=== PATIENT | female | born 1975 | race Caucasian/White ===

== ENCOUNTER 2016-09-21 23:45 | Inpatient (IN) | payer MEDICAID ==
[~2016-09-21] VITALS: Ht 152.4 cm; Wt 81.2 kg
[2016-09-22] MEDS ORDERED: LACTATED RINGER'S 1,000 ML IV ONE ×2 (01:00→07:30)
--- NOTE | 2016-09-22 01:54 | TRIAGE ---
OB Triage Datetime Report Generated by CPN: 09/22/2016 01:54 Datetime: 09/22/2016 01:04 Stage of : OB Triage Datetime: 09/22/2016 00:13 Stage of : Labor Maternal Assessment Level of Consciousness: Fully Conscious DTR's/Clonus: DTRs 2+; No Clonus Headache: Denies Breath Sounds, Left: Clear and Equal Breath Sounds, Right: Clear and Equal Nausea/Vomiting: Denies RUQ Epigastric Pain: Denies Temperature Route: Axillary Heart Rate FHR Baseline Rate: 140 Monitor Mode: External US FHR Baseline Changes: No Baseline Change Variability: Moderate 6-25 bpm Decelerations: None Category: Category I Pain Assessment Pain Scale: 6 Pain Presence: Intermittent Pain Type: Cramping; Dull; Sharp; Contraction Pain Location: Abdomen; Back Pain Goal: 2 Pain Relief Measures: Comfort Measures Vaginal Exam Dilatation (cms): 0.0 Effacement (%): 90 Station: -2 Exam By: TOM PAULINO Membrane Status: Intact Vaginal Bleeding: None Cervix, Consistency: Soft Cervix, Position: Midposition Presentation 'A': Cephalic Lie 'A': Unable to Assess Datetime: 09/22/2016 00:06 Time of Arrival: 09/22/2016 23:37 EGA: 37.4 Arrived By: Ambulatory Arrived From: Home Chief Complaint: C/O PAIN 5/10 WITH UTCS Q 4-5 MINUTES Movement: Present Contractions: Regular Time Contractions Began: 09/22/2016 21:00 Contractions: 4-5 Rupture of Membranes: Denies Vaginal Bleeding: None Vaginal Discharge: Denies Recent Sexual Intercouse: Denies Abdominal Trauma: Not Applicable Patient Complaints: Contractions; Cramping Time Provider Notified: 09/22/2016 01:00 Provider Notified: Jesus Initial Plan: VSS, MONITORING OF FHR AND UTCS, OB ASSESSMENT Datetime: 09/21/2016 23:58 Stage of : Labor Maternal Assessment Level of Consciousness: Fully Conscious DTR's/Clonus: DTRs 2+ Headache: Denies Blurred Vision: No Respiratory Effort: Unlabored Breath Sounds, Left: Clear and Equal Breath Sounds, Right: Clear and Equal Nausea/Vomiting: Denies RUQ Epigastric Pain: Denies Facial Edema: None Labor Evaluation Frequency: 4 Monitor Mode: External Duration (sec)2399: 65--70 Quality: Moderate Pattern: Normal: <= 5 Contractions in 10 Minutes Resting Tone [place]: Relaxed Heart Rate FHR Baseline Rate: 150 Monitor Mode: External US FHR Baseline Changes: No Baseline Change Variability: Minimal - Undetectable to <=5 bpm Decelerations: Early Category: Category II Pain Assessment Pain Scale: 5 Pain Presence: Intermittent Pain Type: Cramping; Contraction Pain Location: Abdomen Pain Goal: 2 Pain Relief Measures: Comfort Measures Membrane Status: Intact
[2016-09-22] MEDS ORDERED: METHYLERGONOVINE 0.2 MG INJ IM PRN ×2 (02:00→11:30)
[2016-09-22] MEDS ORDERED: OXYTOCIN 30 UNITS/LR 500 ML IV SCH (02:00)
[2016-09-22] MEDS ORDERED: CEFAZOLIN 2 GM/50 ML (PMX) 50 ML IV SCH (02:00)
[2016-09-22] MEDS ORDERED: MISOPROSTOL 200 MCG TAB PR PRN ×2 (02:00→11:30)
[2016-09-22] MEDS ORDERED: OXYTOCIN 30 UNITS/LR 500 ML IV PRN ×2 (02:00→11:30)
[2016-09-22] MEDS ORDERED: CARBOPROST 250 MCG INJ IM PRN ×2 (02:00→11:30)
[2016-09-22 02:25] VITALS: Ht 152.4 cm; Wt 81.2 kg
[2016-09-22 02:26] VITALS: BP 133/63; PULSE 67; RESP 18
[2016-09-22 02:51] LABS: ADD SCAN DIFF NO
[2016-09-22 02:54] LABS: BASOPHILS % 0.2 % (0.0-2.0); EOSINOPHILS # 0.1 10^3/ul (0.0-0.5); EOSINOPHILS % 0.9 % (0.0-7.0); HEMATOCRIT 37.6 % (37.0-47.0); HEMOGLOBIN 12.1 g/dl (12.0-16.0); LYMPHOCYTES # 2.6 10^3/ul (0.8-2.9); LYMPHOCYTES % 22.6 % (15.0-51.0); MEAN CORPUSCULAR HEMOGLOBIN 27.1 pg (29.0-33.0); MEAN CORPUSCULAR HGB CONC 32.2 g/dl (32.0-37.0); MEAN CORPUSCULAR VOLUME 84.1 fl (82.0-101.0); MEAN PLATELET VOLUME 10.6 fl (7.4-10.4); MONOCYTES % 8.6 % (0.0-11.0); NEUTROPHIL # 7.6 10^3/ul (1.6-7.5); NEUTROPHILS % 66.3 % (39.0-77.0); PLATELET COUNT 286 10^3/UL (140-415); RED BLOOD COUNT 4.47 10^6/ul (4.20-5.40); WHITE BLOOD COUNT 11.5 10^3/ul (4.8-10.8)
[2016-09-22 02:59] LABS: INR 0.94; PROTIME 12.6 Sec (12.2-14.2)
[2016-09-22 03:04] LABS: PARTIAL THROMBOPLASTIN TIME 27.3 Sec (25.0-35.0)
[2016-09-22] MEDS: LACTATED RINGER'S 1,000 ML IV SCH ×4 (03:04→19:53)
[2016-09-22] MEDS ORDERED: morphine 10 MG INJ IM ONE (03:30)
[2016-09-22] MEDS ORDERED: ONDANSETRON 4 MG INJ IV ONE (07:30)
[2016-09-22] MEDS ORDERED: CITRIC ACID/NA CITRATE 30 ML CUP PO ONE (07:30)
--- NOTE | 2016-09-22 09:39 | PREOPHP ---
DATE OF ADMISSION: 09/22/2016 HISTORY OF PRESENT ILLNESS: Ms. Sara Key is a 40-year-old 2, para 1, EDC 10/09/2016. Intrauterine at 37 weeks and 4 days gestational age, presented to triage complaining of regular contractions with a pain scale it is 8 out of 10. She is currently 4 cm dilated, 100% effac ed, -1 station, intact. She desires elective delivery, declined vaginal after connie an. She had signed a tubal ligation on 02/20/2016; however, according to her consent form p.m. 330 her consent after 100 days has been . Her care took place at [facility]. MEDICAL HISTORY: GDM A1. MEDICATIONS: vitamins. PAST SURGICAL HISTORY: x1 previous section. OBSTETRIC HISTORY: x1 previous section. GYNECOLOGIC HISTORY: 12, regular 3 to 4 days. Denies any sexually transmitted diseases. Sexually active with 1 partner. SOCIAL HISTORY: Denies any smoking, drugs or alcohol. FAMILY HISTORY: None. PHYSICAL EXAMINATION: HEENT: Within normal. LUNGS: CTA bilateral. CARDIOVASCULAR: S1, S2, regular rhythm. ABDOMEN: Gravid, nontender. Negative CVA bilateral. EXTREMITIES: Negative. No calf tenderness. PELVIC: Vaginal exam 4, 100% effaced, -1 station. heart tracing category 1, toco regular con tractions. ASSESSMENT: A 40-year-old 2, para 1, intrauterine at 37 weeks and 4 days gestatio nal age, in labor. Advanced maternal age. GDM A1 desires elective repeat delivery, declin ed vaginal after . PLAN: Consent for repeat delivery. Risks, benefits and alternatives explained. All quest ions were answered. Dictated By: CB GARRETT MD ME/NTS Conf#: [id number] DID#: [id number]
[2016-09-22] MEDS ORDERED: FENTAnyl 50 MCG/ML VIAL ONE (09:48)
[2016-09-22] MEDS ORDERED: morphine SULFATE/PF (10 MG/10 ML) INJ ONE (09:49)
[2016-09-22] MEDS ORDERED: METOCLOPRAMIDE 10 MG INJ ONE (10:13)
[2016-09-22] MEDS ORDERED: PHENYLephrine (100 MCG/ML) 5ML SYG ONE (10:16)
[2016-09-22] MEDS ORDERED: EPHEDrine SULFATE 50 MG/5 ML SYG ONE (10:22)
[2016-09-22] MEDS ORDERED: LANOLIN 7 GM TUBE TOP PRN (11:30)
[2016-09-22] MEDS ORDERED: OXYCODONE/ACETAMINOPHEN (5/325) TAB PO PRN ×2 (11:30)
[2016-09-22] MEDS ORDERED: KETOROLAC 30 MG INJ IV PRN (12:00)
[2016-09-22] MEDS ORDERED: DIPHENHYDRAMINE 50 MG INJ IV PRN (12:00)
[2016-09-22] MEDS ORDERED: HYDROmorphONE 1 MG/ML SYG IV PRN ×2 (12:00)
[2016-09-22] MEDS ORDERED: PROCHLORPERAZINE 10 MG INJ IV PRN (12:00)
[2016-09-22] MEDS ORDERED: NALOXONE (0.4 MG/ML) INJ IV PRN (12:00)
[2016-09-22] MEDS: IBUPROFEN 600 MG TAB PO SCH ×2 (12:00→18:00)
[2016-09-22] MEDS ORDERED: ONDANSETRON 4 MG INJ IV PRN (12:00)
[2016-09-22 14:20] VITALS: BP 99/57; PULSE 62; RESP 18
--- NOTE | 2016-09-22 14:58 | OPR ---
DATE OF OPERATION: 09/22/2016 PRIMARY DIAGNOSIS: A 40-year-old 2, para 1 intrauterine at 37+ weeks gestational age in labor, previous x1; desires elective repeat delivery; declines vaginal bir th after ; gestational diabetes mellitus A1. OPERATION PERFORMED: Repeat low transverse delivery via Pfannenstiel incision. SURGEON: Benjamín Bustillos MD ECHO VASCULAR TECH: Ry Luna MD ANESTHESIA: Spinal. COMPLICATIONS: None. ESTIMATED BLOOD LOSS: 500 mL FINDINGS: A viable female, 9 and 9 respectively at 1 and 5 minutes, weight 3720 grams. DESCRIPTION OF PROCEDURE: After explaining the risks, benefits and alternatives to the patient, con sent signed and in chart, the patient was taken to the operating room where spinal anesthesia was fo und to be adequate. She was then prepared and draped in normal sterile fashion in dorsal supine pos ition with a leftward tilt. A Pfannenstiel skin incision was then made with a scalpel and carried t o the underlying layer of fascia. Fascia was incised in the midline and the incision was extended l aterally with Mcdonald scissors. The superior aspect of the fascial incision was grasped with Jesus cl amps, elevated and the underlying rectus muscles dissected off bluntly. Attention was then turned t o the inferior aspect of the incision which, in similar fashion, was grasped, tented up with Jesus clamps and the rectus muscles dissected off bluntly. The rectus muscle was and the perito neum was identified, tented up and entered sharply with Metzenbaum scissors. The peritoneal incisio n was extended superiorly, obtaining good visualization of bladder. The bladder blade was then inse rted and the vesicouterine peritoneum was identified, grasped with pickups and entered sharply with Metzenbaum scissors. This incision was extended laterally and a bladder flap created digitally. Th e bladder blade was then reinserted and the lower segment incised in transverse fashion. The uterin e incision was extended laterally. The bladder blade was removed and the 's head delivered at raumatically. The nose and mouth were suctioned and cord clamped and cut. The infant was handed of f to awaiting carpet cleaner. The placenta was then removed. The uterus was exteriorized and cleared of all clots and debris. The uterine incision was repaired with 1-0 chromic in a running locked fashion. A second layer of same suture was used for imbricatio n, obtaining excellent hemostasis. The uterus was returned to the abdomen. The gutters were cleare d of all clots. The peritoneum and rectus abdominis muscles were reapproximated with 3-0 Vicryl in interrupted fashion. The fascia was reapproximated with 0 Vicryl in a running fashion. The subcuta neous tissue was reapproximated with 2-0 plain gut in a running fashion. The skin was closed with s taples. The patient tolerated procedure well. Sponge, lap, and needle counts correct x2. The isaiah ent was taken to recovery room in stable condition. Dictated By: BENJAMÍN BLACKWOOD/LYNDA Conf#: [id number] DID#: [id number]
[2016-09-22 16:00] VITALS: BP 94/51; PULSE 64; RESP 20
[2016-09-22 19:35] VITALS: BP 93/52; PULSE 76; RESP 18
[2016-09-22] MEDS: SENNA/DOCUSATE NA (8.6MG/50MG) TAB PO SCH (21:16)
[2016-09-22 23:55] VITALS: BP 97/53; PULSE 72; RESP 19
[2016-09-23 04:00] VITALS: BP 93/50; PULSE 78; RESP 18
[2016-09-23] MEDS: LACTATED RINGER'S 1,000 ML IV SCH ×3 (05:40→18:26)
[2016-09-23] MEDS: IBUPROFEN 600 MG TAB PO SCH ×5 (06:00→23:58)
[2016-09-23 07:45] VITALS: BP 103/58; PULSE 70; RESP 16
[2016-09-23 10:16] LABS: ADD SCAN DIFF NO
[2016-09-23 10:22] LABS: BASOPHILS % 0.2 % (0.0-2.0); EOSINOPHILS # 0.1 10^3/ul (0.0-0.5); EOSINOPHILS % 0.6 % (0.0-7.0); HEMATOCRIT 29.5 % (37.0-47.0); HEMOGLOBIN 9.7 g/dl (12.0-16.0); LYMPHOCYTES # 2.1 10^3/ul (0.8-2.9); LYMPHOCYTES % 18.3 % (15.0-51.0); MEAN CORPUSCULAR HEMOGLOBIN 27.9 pg (29.0-33.0); MEAN CORPUSCULAR HGB CONC 32.9 g/dl (32.0-37.0); MEAN CORPUSCULAR VOLUME 84.8 fl (82.0-101.0); MEAN PLATELET VOLUME 10.1 fl (7.4-10.4); MONOCYTE # 0.6 10^3/ul (0.3-0.9); MONOCYTES % 5.6 % (0.0-11.0); NEUTROPHIL # 8.6 10^3/ul (1.6-7.5); NEUTROPHILS % 74.4 % (39.0-77.0); PLATELET COUNT 251 10^3/UL (140-415); RED BLOOD COUNT 3.48 10^6/ul (4.20-5.40); RED CELL DISTRIBUTION WIDTH 15.2 % (11.5-14.5); WHITE BLOOD COUNT 11.5 10^3/ul (4.8-10.8)
[2016-09-23] MEDS: SENNA/DOCUSATE NA (8.6MG/50MG) TAB PO SCH ×2 (10:54→20:27)
[2016-09-23 12:00] VITALS: BP 106/61; PULSE 77; RESP 16
[2016-09-23 16:00] VITALS: BP 105/61; PULSE 76; RESP 18
--- NOTE | 2016-09-23 19:25 | QN ---
Documentation Comment patient seen and evaluated no complaints vs stable afebrile abd soft nt dressing clean extremity no edema no calf tenderness a/ sp cd pod 1 stable afebrile p/ iron supplement CB GARRETT MD September 23, 2016 19:25
[2016-09-23 20:00] VITALS: BP 100/63; PULSE 81; RESP 19
[2016-09-23] MEDS: FERROUS SULFATE (EC) 325 MG TAB PO SCH (20:27)
[2016-09-24] MEDS: LACTATED RINGER'S 1,000 ML IV SCH ×2 (03:12→11:12)
[2016-09-24 04:00] VITALS: BP 103/60; PULSE 72; RESP 20
[2016-09-24] MEDS: IBUPROFEN 600 MG TAB PO SCH ×4 (05:44→23:19)
[2016-09-24 08:32] LABS: ADD SCAN DIFF NO
[2016-09-24 08:40] VITALS: BP 109/59; PULSE 66; RESP 18
[2016-09-24] MEDS: SENNA/DOCUSATE NA (8.6MG/50MG) TAB PO SCH ×2 (08:40→20:45)
[2016-09-24] MEDS: FERROUS SULFATE (EC) 325 MG TAB PO SCH ×2 (08:40→20:45)
[2016-09-24 08:43] LABS: BASOPHILS % 0.4 % (0.0-2.0); EOSINOPHILS # 0.2 10^3/ul (0.0-0.5); EOSINOPHILS % 1.7 % (0.0-7.0); HEMATOCRIT 29.5 % (37.0-47.0); HEMOGLOBIN 9.5 g/dl (12.0-16.0); LYMPHOCYTES # 1.9 10^3/ul (0.8-2.9); LYMPHOCYTES % 17.5 % (15.0-51.0); MEAN CORPUSCULAR HEMOGLOBIN 27.2 pg (29.0-33.0); MEAN CORPUSCULAR HGB CONC 32.2 g/dl (32.0-37.0); MEAN CORPUSCULAR VOLUME 84.5 fl (82.0-101.0); MEAN PLATELET VOLUME 10.2 fl (7.4-10.4); MONOCYTE # 0.7 10^3/ul (0.3-0.9); MONOCYTES % 6.6 % (0.0-11.0); NEUTROPHIL # 7.7 10^3/ul (1.6-7.5); NEUTROPHILS % 72.3 % (39.0-77.0); PLATELET COUNT 266 10^3/UL (140-415); RED BLOOD COUNT 3.49 10^6/ul (4.20-5.40); RED CELL DISTRIBUTION WIDTH 15.2 % (11.5-14.5); WHITE BLOOD COUNT 10.7 10^3/ul (4.8-10.8)
--- NOTE | 2016-09-24 13:38 | PD.PPDC ---
SINGING MESSENGER Discharge Instruction Condition Patient Condition: Good Activity/Restrictions Restrictions: No Lifting No Driving No Sexual Activity Nothing in the Vagina No Tampons, douche Follow-up Follow-up with Physician: 3, Day/Days Provider Information: follow up office this thursday to remove indira Return to clinic for IT FIELD TECHNICIAN Instructions: Fever greater than 101 Chills Worsening abdominal pain Excessive Vaginal Bleeding More than 2 pads per hour Unable to tolerate diet OB Instructions: Breast Tenderness Depression Blurried Vision Headache Surgical Instructions: Incisional Drainage Incisional Redness CB GARRETT MD September 24, 2016 13:38
[2016-09-24 15:28] VITALS: BP 119/59; PULSE 73; RESP 19
[2016-09-24 19:30] VITALS: BP 124/76; PULSE 62; RESP 19
--- NOTE | 2016-09-24 20:56 | DS ---
DATE OF ADMISSION: 09/22/2016 DATE OF DISCHARGE: PRIMARY DIAGNOSIS: A 40-year-old 2, para 1, intrauterine at 37+ weeks gestational age in labor, previous x1, desires elective repeat delivery, declined vaginal bi rth after , gestational GDM A1. PROCEDURE: Repeat low transverse delivery via Pfannenstiel incision. CONDITION ON DISCHARGE: Stable. ACTIVITY: None per vagina. No heavy lifting x6 weeks. DIET: Regular. MEDICATIONS ON DISCHARGE: 1. Motrin. 2. Percocet. 3. Iron. 4. Colace. DISCHARGE SUMMARY: Ms. Sara Key is a 40-year-old 2, para 2, status post repeat low t ransverse delivery on 09/22/2016. She had a viable female, 9 and 9 respectively at 1 and 5 minutes, weight 3720 grams. She had an uneventful postop day 1 and 2. She will be discharge d on postop day 3. Her incision is clean, dry, and intact. She is ambulating, tolerating diet, pos itive flatulence, positive bowel movement. She will follow up in the office this Thursday to remove h er indira. Dictated By: CB BLACKWOOD/LYNDA Conf#: [id number] DID#: [id number]
[2016-09-25 04:00] VITALS: BP 113/64; PULSE 65; RESP 20
[2016-09-25] MEDS: IBUPROFEN 600 MG TAB PO SCH ×2 (05:30→12:00)
[2016-09-25 08:00] VITALS: BP 127/76; PULSE 65; RESP 18
[2016-09-25] MEDS: SENNA/DOCUSATE NA (8.6MG/50MG) TAB PO SCH (09:19)
[2016-09-25] MEDS: FERROUS SULFATE (EC) 325 MG TAB PO SCH (09:19)
== END 2016-09-25 14:20 | disposition home or self-care (01) | DRG 766 ==
LOC: OBT 23:45 → L-D 23:49 → OBT 09-22 01:20 → L-D 09-22 01:20 → PP1 09-22 14:20
PROVIDERS: ADMIT Obstetrics & Gynecology; ATTEND Obstetrics & Gynecology
PROC: 10D00Z1 Extraction of Products of Conception, Low, Open Approach (ICD-10-PCS; principal; 2016-09-22 10:30)
DX: O34.211 Maternal care for low transverse scar from previous cesarean delivery (principal); O24.429 Gestational diabetes mellitus in childbirth, unspecified control; Z3A.37 37 weeks gestation of pregnancy; Z37.0 Single live birth
CPT/HCPCS: 82962; 85025; 85610; 85730; 86592; 86850; 86900; 86901; 87340; 94760; 99464; G0463; J0690; J1885; J2270; J2274; J2370; J2405; J2590; J2765; J3010; J7120